=== PATIENT | male | born 1995 | race Two or more races ===

== ENCOUNTER → 2021-12-11 | Emergency (ER) | payer OTHER ==
[~2021-12-11] VITALS: Ht 165.1 cm; Wt 66.7 kg
[~2021-12-11] MED LIST: IBUP600T27 PO; IBUPROFEN 600 MG TAB PO ONE; METH500T22 PO
[2021-12-11 08:45] VITALS: BP 142/86
== END | disposition home or self-care (01) ==
LOC: ER 08:44
DX: S20.212A Contusion of left front wall of thorax, initial encounter (principal); M54.2 Cervicalgia; V43.62XA Car passenger injured in collision with other type car in traffic accident, initial encounter; Y93.89 Activity, other specified; Y92.410 Unspecified street and highway as the place of occurrence of the external cause; Y99.8 Other external cause status
CPT/HCPCS: 71101